=== PATIENT | male | born 2005 | race Caucasian/White ===

== ENCOUNTER 2023-04-13 15:07 | Emergency (ER) | payer BC, SELFPAY ==
[2023-04-13 15:19] VITALS: BP 116/63; PULSE 80; RESP 16; TEMP 36.9; O2SAT 100
--- NOTE | 2023-04-13 15:19 | ED.SKABFB ---
HPI - Skin/Abscess/Foreign Bdy General Chief complaint: Skin/Abscess/Foreign Body Stated complaint: Poison Tobias History of Present Illness HPI narrative: patient presents with itchy rash was exposed to poison yuki rash to face and right wrist Related Data Allergies Allergy/AdvReac Type Severity Reaction Status Date / Time No Known Allergies Allergy Unverified 06/29/19 19:21 Review of Systems Review of Systems: CONSTITUTIONAL: Denies fever, chills, or sweats. EYES: Denies visual changes, redness, or discharge. ENT: Denies rhinorrhea, congestion, sore throat, or otalgia. CARDIOVASCULAR: Denies chest pain, palpitations, or edema. RESPIRATORY: Denies cough or dyspnea. GASTROINTESTINAL: Denies abdominal pain, nausea, vomiting, or diarrhea. GENITOURINARY: Denies dysuria or hematuria. SKIN: Denies rash or itching. MUSCULOSKELETAL: Denies back pain, joint pain, or myalgia. NEUROLOGIC: Denies headache, numbness, or weakness. PSYCHIATRIC: Denies anxiety or depression. Exam Narrative: GENERAL: Well-appearing, well-nourished, and in no acute distress. HEAD: Normocephalic, atraumatic. EYES: PERRLA and EOMI. ENT: Nares clear, no rhinorrhea or epistaxis. Mucous membranes moist. NECK: Supple. CHEST: Clear to auscultation. No respiratory distress. HEART: Regular rate and rhythm. No murmur heard. Normal peripheral pulses. ABDOMEN: Soft, nontender, nondistended, normal active bowel sounds. EXTREMITIES: Normal range of motion. No edema. SKIN: Warm, dry, rash to right cheek and right wrist RASH CONSISTENT WITH RHUS DERMATITIS. LINEAR BROWNING WITH WET LIKE APPEARS ON NEW AREAS. DIFFERENT STAGES PRESENT. REDNESS TO LESIONS. NO SIGNS OF INFECTION OR CELLULITIS/ABSCESS. NO VESICLES. NO ULCERATIONS. NO RAISED URTICARIAL LESIONS. NO LESIONS ALONG THE WAISTBAND OR IN WEB SPACES. NO BURROWS. NO PETECHIAE. NEURO: No focal deficits. Alert and oriented x3. [place] Coma Scale Eye Opening: Spontaneous 4 [place] Coma Scale Motor: Obeys Commands 6 [place] Coma Scale Verbal: Oriented 5 [place] Coma Scale Total 15 Course Course Level of Care: Express Care Visit MDM - Skin/Abscess/Foreign Bdy Differential Diagnosis Differential diagnosis: Likely abscess of skin or subcutaneous tissue, viral exanthem, dermatophytosis, urticaria, herpes zoster, allergic reaction to drug, cellulitis, eczema, insect bites, impetigo and contact dermatitis Discharge Plan Discharge Clinical Impression: Poison yuki Patient Disposition: Home, Self-Care Condition: Stable Instructions: Poison Yuki (ED) Additional Instructions: 1. Please be aware that the oil from the plant is what causes the skin irritation, it will continue to spread as long as the oils are present. Please wash all clothing, bedding, equipment that came into contact with the plant to prevent further spreading. Animal fur can also cause spread of oils. 2. You can apply 1% Hydrocortisone cream on the rash, in smaller distributed areas, do no cover body, up to 3 times a day. This is available over the counter. 3. Cold soaks: cold compresses and soaks can be soothing to the skin. Ice cubes to the area help prevent oils from spreading. 4. Benadryl 25-50mg as needed every 6 hours over the counter to help with itching 5. Prevent scratching so that accidental skin infections do no occur. 6. If rash begins to look infected (red, warmth, fevers, increased drainage) please see PCP 7. If you develop eyelid swelling, difficulty breathing, feeling like your throat is closing, wheezing, PLEASE GO TO EMERGENCY DEPARTMENT OR CALL 911 -If you have any worsening of symptoms or any other concerns please go to the ED immediately. Prescriptions: New prednisone 20 mg tablet 60 mg PO DAILY 5 Days Qty: 15 0RF Zyrtec 10 mg capsule 10 mg PO DAILY 14 Days Qty: 14 0RF diphenhydramine HCl [Benadryl Allergy] 25 mg tablet 25 mg PO HS 10 Days Qty: 10 0RF Follow-up/Referrals: Shruthi,Hang
== END 2023-04-13 15:32 | disposition home or self-care (01) ==
PROVIDERS: Emergency Provider Nurse Practitioner Family; PCP Pediatrics
DX: L23.7 Allergic contact dermatitis due to plants, except food (principal)
CPT/HCPCS: 99203; G0463

== ENCOUNTER 2024-05-05 11:11 | Emergency (ER) | payer BC, SELFPAY ==
[2024-05-05 11:18] VITALS: BP 132/68; PULSE 50; RESP 16; TEMP 36.6; O2SAT 99
--- NOTE | 2024-05-05 11:24 | ED.WOUNDLAC ---
HPI - Wound/Laceration General Chief Complaint: Wound/Laceration Stated Complaint: dog nipped face History of Present Illness HPI narrative: patient is a 18-year-old male, without significant past medical history, presents to [facility] with a dog bite abrasion to nasal bridge, proximal to the medial aspect of his right eyebrow. Notes the area blood briefly but has since been controlled. The incident occurred approximately 1 hour ago when his dog was being treated at the group counselor office and to his face. He denies any injury to his right eye. His last tetanus vaccination was relieved approximately 3 years ago. He has no other complaints or injuries. Related Data Allergies Allergy/AdvReac Type Severity Reaction Status Date / Time No Known Allergies Allergy Unverified 06/29/19 19:21 Review of Systems Integumentary/Breasts: Comments: Refer to HPI Exam Const: General: cooperative, healthy appearing, comfortable and no acute distress Nutritional Appearance: average body habitus Orientation/consciousness: oriented to person HENMT: Head: normal to inspection, No palpable skull fracture present and normocephalic Head images: 1. superficial abrasion, wound margins are approximated, no active bleeding, no underlying bony tenderness to palpation, no swelling Face/Nose/Sinus: Normal nares present, sinuses nontender and face symmetric Mouth: Yes Normal oral and palatal mucosa present and Yes lip normal Eyes: General: appearance normal, both eyes and all related structures Visual Beck: normal visual beck by confrontation Alignment and Position: alignment normal Periorbital: periorbital findings normal Eyelids: eyelids normal Conjunctivae: conjunctivae normal Sclera: sclerae normal Cornea: corneas normal Pupils: Equal, round and reactive pupils present EOM: EOMs intact bilaterally Direct Ophthalmoscopy: normal light reflex and no photophobia Neck: Neck: normal visual inspection, full ROM, no lymphadenopathy and no meningeal signs Resp: Effort & Inspection: normal respiratory effort and able to speak in complete sentences Auscultation: clear to auscultation bilaterally Cardio: Palpation: normal PMI Rate: regular rate Rhythm: regular rhythm Heart sounds: S1 normal heart sound present and S2 normal heart sound present Peripheral pulses: Peripheral pulses 2+ throughout Neuro: General: oriented to person, oriented to place, oriented to time, patient oriented x3 and gait normal Cranial nerves: Yes CN's II-XII intact bilaterally Cognition (Neuro): normal cognition Speech: normal speech Extrem: General: normal to inspection, full ROM and capillary refill normal Right upper extremity: normal to inspection Left upper extremity: normal to inspection Course Course Emergency Course: patient's wound is superficial, and therefore does not require repair. Patient is encouraged to keep the wound clean and dry, he may apply topical antibiotic ointment or Vaseline. Will treat empirically with Augmentin for dog bite injury, tetanus vaccination is already up-to-date. Follow-up closely with his PCP with any healing concerns. Level of Care: Express Care Visit ([id number]) Vital Signs Vital signs: Vital Signs Temperature 36.6 C 05/05/24 11:18 Pulse Rate 50 L 05/05/24 11:18 Respiratory Rate 16 05/05/24 11:18 Blood Pressure 132/68 05/05/24 11:18 Pulse Oximetry 99 05/05/24 11:18 Oxygen Delivery Room Air 05/05/24 11:18 Temperature 36.6 C 05/05/24 11:18 Pulse Rate 50 L 05/05/24 11:18 Respiratory Rate 16 05/05/24 11:18 Blood Pressure 132/68 05/05/24 11:18 Pulse Oximetry 99 05/05/24 11:18 Oxygen Delivery Room Air 05/05/24 11:18 MDM - Wound/Laceration MDM Narrative Medical decision making narrative: Augmentin, wound care instructions provided Differential Diagnosis Differential diagnosis: Likely other ( abrasion) Discharge Plan Discharge Clinical Impression: Abrasio
== END 2024-05-05 11:37 | disposition home or self-care (01) ==
PROVIDERS: Emergency Provider Nurse Practitioner Family
DX: S00.31XA Abrasion of nose, initial encounter (principal); W54.0XXA Bitten by dog, initial encounter
CPT/HCPCS: 99213; G0463

== ENCOUNTER 2024-06-26 10:08 | Emergency (ER) | payer BC, SELFPAY ==
[2024-06-26 10:17] VITALS: BP 142/67; PULSE 58; RESP 16; TEMP 36.9; O2SAT 100
--- NOTE | 2024-06-26 10:53 | ED.MALEGU ---
HPI - Male Genitourinary General Chief complaint: Urogenital-Male Stated complaint: STD Time Seen by Provider: 06/26/24 10:35 Source: patient, RN notes reviewed and old records reviewed Mode of arrival: ambulatory Limitations: no limitations History of Present Illness HPI Narrative: 18 year old male presents to [facility] care with complaints of positive exposure to Chlamydia with symptoms for the past 2 days. Patient reports that girl friend started with symptoms 4 days ago and had positive test. Patient reports that he has some burning from urethra denies any drainage, and some discomfort in testicles, denies any sharp pain MD Complaint: dysuria and other (little aching testicles) Onset (ago): day(s) (2) Location: penis Severity scale (1-10): 3 Related Data Allergies Allergy/AdvReac Type Severity Reaction Status Date / Time No Known Allergies Allergy Unverified 06/29/19 19:21 Review of Systems Review of Systems: CONSTITUTIONAL: Denies fever, chills, or sweats. CARDIOVASCULAR: Denies chest pain, palpitations, or edema. RESPIRATORY: Denies cough or dyspnea. GASTROINTESTINAL: Denies abdominal pain, nausea, vomiting, or diarrhea. GENITOURINARY: Reports dysuria, no frequency, urgency. Denies flank pain or hematuria. states some aching of testicle denies any sharp or acute pain to testicles SKIN: Denies rash or itching. MUSCULOSKELETAL: Denies back pain or myalgia. 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 There is no relevant family history pertinent to the presenting complaint Exam Narrative: GENERAL: Well-appearing, well-nourished, and in no acute distress. HEAD: Normocephalic, atraumatic. NECK: Supple.no lymphadenopathy CHEST: Clear to auscultation. No respiratory distress.SAO2 100% on room air HEART: Regular rate and rhythm. No murmur heard. Normal peripheral pulses. ABDOMEN: Soft, nontender, nondistended, normal active bowel sounds. No CVA tenderness reports some burning with urination and aching in testicles, denies any sharp pain in testes. EXTREMITIES: Normal range of motion. No edema. SKIN: Warm, dry, no rash. NEURO: No focal deficits. Alert and oriented x3. Course Course Emergency Course: Patient is aware of diagnosis, understands and agrees to treatment plan.? Anticipatory guidance given.? Patient agrees to follow-up as directed and is aware of reasons to seek care at the emergency department. Portions of this record may have been created with voice recognition software Level of Care: Express Care Visit Vital Signs Vital signs: Vital Signs Temperature 36.9 C 06/26/24 10:17 Pulse Rate 58 L 06/26/24 10:17 Respiratory Rate 16 06/26/24 10:17 Blood Pressure 142/67 H 06/26/24 10:17 Pulse Oximetry 100 06/26/24 10:17 Oxygen Delivery Room Air 06/26/24 10:17 Temperature 36.9 C 06/26/24 10:17 Pulse Rate 58 L 06/26/24 10:17 Respiratory Rate 16 06/26/24 10:17 Blood Pressure 142/67 H 06/26/24 10:17 Pulse Oximetry 100 06/26/24 10:17 Oxygen Delivery Room Air 06/26/24 10:17 reviewed MDM - Male Genitourinary
[2024-06-26 19:35] LABS: Trichomonas Vag PCR NOT DETECTED (NOT DETECTE)
[2024-06-26 20:00] LABS: Chlamydia trachomatis DETECTED (NOT DETECTE); Neisseria gonorrhoeae PCR NOT DETECTED (NOT DETECTE)
== END 2024-06-26 11:12 | disposition home or self-care (01) ==
PROVIDERS: Emergency Provider Registered Nurse
DX: Z20.2 Contact with and (suspected) exposure to infections with a predominantly sexual mode of transmission (principal)
CPT/HCPCS: 87491; 87591; 87661; 99213; G0463

== ENCOUNTER 2025-04-07 10:45 | Emergency (ER) | payer SELFPAY ==
[2025-04-07 10:50] VITALS: BP 148/87; PULSE 51; RESP 20; TEMP 36.8; O2SAT 100
--- NOTE | 2025-04-07 11:23 | ED_ITS ---
HPI - Alcohol General Chief Complaint: Alcohol Stated Complaint: Coughing Black Stuff Time Seen by Provider: 04/07/25 11:05 Source: patient and RN notes reviewed Mode of arrival: ambulatory Limitations: no limitations History of Present Illness HPI narrative: 19-year-old male presents Express [facility] complaining of alcohol withdrawals, coughing of blocks, black tarry stools. Patient stated he has recently been dr inking a lot alcohol drinking approximately a half a 5th for the last 2-3 months. Patient said over the last 5 months he has been drinking a lot lately but not as much as a pediatric in the last 3 months. Patient stated he stopped drinking approximately 30 hours ago. Patient reports having nausea, vomiting, diaphoresis, tremors, and right upper abdominal pain. Patient says his nausea and vomiting has significantly improved today however he continues to have black tarry stools and states he is coughing a black stuff. Patient denies any fevers, body aches, chills, upper respiratory symptoms, chest pain, shortness of breath, or any other symptoms. Patient states he does smoke cigarettes and marijuana but denies any other illicit drug use. Related Data Home Medications ?Medication ?Instructions ?Recorded ?Confirmed ?Last Taken ?Type No Home Medications 04/07/25 04/07/25 Unknown History Allergies Allergy/AdvReac Type Severity Reaction Status Date / Time No Known Allergies Allergy Unverified 06/29/19 19:21 Review of Systems Review of Systems: CONSTITUTIONAL: Denies fever, chills. Positive for sweats EYES: Denies visual changes, redness, or discharge. ENT: Denies rhinorrhea, congestion, sore throat, or otalgia. CARDIOVASCULAR: Denies chest pain, palpitations, syncope, lightheadedness, dizziness or edema. RESPIRATORY: Denies cough or dyspnea. GASTROINTESTINAL: Positive for abdominal pain, nausea, vomiting, black tarry stools. Negative for hematochezia or diarrhea. GENITOURINARY: Denies dysuria or hematuria. SKIN: Denies rash or itching. MUSCULOSKELETAL: Denies back pain, joint pain, or myalgia. NEUROLOGIC: Denies headache, numbness, or weakness. Positive for tremors. PSYCHIATRIC: Denies anxiety or depression. All other systems reviewed are negative, except as documented in HPI. 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 There is no relevant family history pertinent to the patient complaint. Exam Narrative: GENERAL: This is a well-nourished, well-developed adult, in no apparent distress. They are non ill-appearing, nontoxic appearing. Patient is diaphoretic along his forehead and axilla. HEAD: normocephalic, atraumatic. EYES: Sclera clear/white. Conjunctiva normal. Vision is grossly intact. Extraocular movements intact. Pupils PERRLA EARS: External ears normal. Hearing grossly intact. NOSE: External nose normal THROAT: Mucous membranes moist, NECK: Neck supple, non-tender without lymphadenopathy, masses or thyromegaly. CARDIOVASCULAR: Bradycardic rate and rhythm without murmurs, clicks, gallops, or rubs. RESPIRATORY: Clear to auscultation. Breath sounds equal bilaterally. No wheezes, rales, or rhonchi. Normal respiratory exam. GASTROINTESTINAL: Abdomen soft, flat, there is tenderness to palpation to the right upper and lower quadrant. Negative Jaquez sign. Abdomen is Nondistended. Bowel sounds are active. No hepato-splenomegaly, or palpable masses. No guarding. No rebound tenderness. SKIN: warm, Dry, intact with no suspicious lesions or rash, good texture and turgor. NEURO: awake, alert, and oriented to person, place and time. There were no obvious focal neurologic abnormalities. No obvious tremoring. EXTREMITIES: No joint tenderness, effusion, or edema noted. BACK: Nontender without deformity. Course Course Emergency Course: Portions of this record may have been created with voice recognition software Level of Care: Express Care Visit Vital Signs Vital signs: Vital Signs Temperature 98.3 F 04/07/25 10:50 Pulse Rate 51 L 04/07/25 10:50 Respiratory Rate 20 04/07/25 10:50 Blood Pressure 148/87 H 04/07/25 10:50 Pulse Oximetry 100 04/07/25 10:50 Oxygen Delivery Room Air 04/07/25 10:50 Temperature 98.3 F 04/07/25 10:50 Pulse Rate 51 L 04/07/25 10:50 Respiratory Rate 20 04/07/25 10:50 Blood Pressure 148/87 H 04/07/25 10:50 Pulse Oximetry 100 04/07/25 10:50 Oxygen Delivery Room Air 04/07/25 10:50 Reviewed Transfer Transfered to: [facility] Transportation: Other (Private vehicle) Transfer rationale: Abdominal pain, alcohol withdrawals, black tarry stools, requiring higher level care Accepting physician: Dr. Dailey MDM - Alcohol MDM Narrative Medical decision making narrative: CIWA 5. Likely mild alcohol withdrawal symptoms. However given the patient's black tarry stool and abdominal pain it is recommend the patient seek a higher level care and proceed immediately to the emergency department. Patient is agreeable to go to [facility]. Patient is hemodynamically stable. Called over to [facility] and spoke with Lyudmila HAWLEY who is aware of this patient and Dr. Dailey who accepted this patient for transfer. Patient states his sister will take him to the hospital. Patient declined EMS. Patient advised to remain NPO and proceed immediately to the ER. Differential Diagnosis Differential diagnosis: Likely alcohol intoxication, alcohol withdrawal syndrome and other (Cholecystitis, hepatitis, pancreatitis, appendicitis, GI bleed) Critical Care Time Critical Care Time Critical Care Time: No Discharge Plan Discharge Clinical Impression: Black stool Alcohol withdrawal Qualifiers: Complication of substance-induced condition: with unspecified complication Qualified Code(s): F10.939 - Alcohol use, unspecified with withdrawal, unspecified Abdominal pain Qualifiers: Abdominal location: right upper quadrant Qualified Code(s): R10.11 - Right upper quadrant pain Patient Disposition: Home Condition: Stable Patient Language: Ghanaian Prescriptions: No Action No Home Medications Follow-up/Referrals: PHYSICIAN,SENIOR CATEGORY MANAGER [Primary Care Provider] - Time of Disposition:
== END 2025-04-07 11:18 | disposition short-term general hospital (02) ==
LOC: EXPBETH 10:48
DX: K92.1 Melena (principal); F10.939 Alcohol use, unspecified with withdrawal, unspecified; R10.11 Right upper quadrant pain
CPT/HCPCS: 99212; G0463